=== PATIENT | male | born 1965 | race Asian ===

== ENCOUNTER 2016-12-04 10:28 | Emergency (ER) | payer OTHER ==
[~2016-12-04] VITALS: Ht 162.6 cm; Wt 59.0 kg
[2016-12-04 10:44] VITALS: BP 155/96
[2016-12-04 11:29] LABS: Basophils # (auto) 0 uL; CONDITION Y; Eosinophils # (auto) 0.1 uL; Eosinophils % (auto) 1.1 % (0.0-7.0); Hematocrit 45.3 % (41.0-53.0); Hemoglobin 15.8 g/dL (13.5-17.5); Lymphocytes # (auto) 0.3 uL; Lymphocytes % (auto) 4.2 % (10.0-50.0); Mean Corpuscular Hemoglobin 33.9 pg (28.0-32.0); Mean Corpuscular Hgb Conc. 34.8 g/dL (32.0-36.0); Mean Corpuscular Volume 97.3 fL (80.0-100.0); Mean Platelet Volume 8.3 fL (7.4-10.4); Monocytes % (auto) 13.8 % (0.0-12.0); Neutrophils # (auto) 5.7 uL; Neutrophils % (auto) 80.9 % (37.0-80.0); Platelet Count (auto) 271 10^3/uL (140-450); Red Cell Distribution Width 14.1 % (11.6-16.0)
[2016-12-04 11:47] LABS: Albumin 4.3 g/dL (3.4-5.0); BUN/Creatinine Ratio 16.7; Calcium 9.2 mg/dL (8.5-10.1); Potassium 3.8 mmol/L (3.5-5.1)
[2016-12-04 11:49] LABS: Bilirubin, Total 1.2 mg/dL (0.2-1.0); Total Protein 7.6 g/dL (6.4-8.2)
== END 2016-12-04 11:53 | disposition left against medical advice (07) ==
LOC: ER 10:33
DX: Z76.1 Encounter for health supervision and care of foundling (principal); Z53.21 Procedure and treatment not carried out due to patient leaving prior to being seen by health care provider
CPT/HCPCS: 36415; 80053; 85025

== ENCOUNTER 2016-12-17 00:59 | Emergency (ER) | payer OTHER ==
[~2016-12-17] VITALS: Ht 162.6 cm; Wt 56.7 kg
[2016-12-17] MEDS ORDERED: cefTRIAXone SOD 1,000 MG VL IM ONE (03:45)
[2016-12-17 04:15] VITALS: BP 127/72
== END 2016-12-17 04:29 | disposition home or self-care (01) ==
LOC: ER 00:59
DX: L03.011 Cellulitis of right finger (principal); B00.89 Other herpesviral infection; M19.90 Unspecified osteoarthritis, unspecified site
CPT/HCPCS: 10160; 73140; 87205; 96372; 99285; J0696

== ENCOUNTER 2017-07-04 12:15 | Emergency (ER) | payer OTHER ==
[~2017-07-04] VITALS: Ht 162.6 cm; Wt 56.7 kg
[2017-07-04 13:00] VITALS: BP 136/94
== END 2017-07-04 14:31 | disposition left against medical advice (07) ==
LOC: ER 12:15
DX: C85.90 Non-Hodgkin lymphoma, unspecified, unspecified site (principal); M19.90 Unspecified osteoarthritis, unspecified site

== ENCOUNTER 2017-08-28 18:04 | Emergency (ER) | payer OTHER ==
[~2017-08-28] VITALS: Ht 162.6 cm; Wt 55.3 kg
[2017-08-28 18:08] VITALS: BP 134/38
[2017-08-28 18:54] LABS: Basophils # (auto) 0 uL; Basophils % (auto) 0.6 % (0.0-2.0); Eosinophils # (auto) 0.2 uL; Eosinophils % (auto) 2.7 % (0.0-7.0); Hematocrit 35.1 % (41.0-53.0); Hemoglobin 12.2 g/dL (13.5-17.5); Lymphocytes # (auto) 0.2 uL; Lymphocytes % (auto) 2.9 % (10.0-50.0); Mean Corpuscular Hemoglobin 33.5 pg (28.0-32.0); Mean Corpuscular Hgb Conc. 34.8 g/dL (32.0-36.0); Mean Corpuscular Volume 96.3 fL (80.0-100.0); Monocytes # (auto) 1.1 uL; Monocytes % (auto) 15.1 % (0.0-12.0); Neutrophils # (auto) 5.8 uL; Neutrophils % (auto) 78.7 % (37.0-80.0); Platelet Count (auto) 328 10^3/uL (140-450); Red Blood Cells 3.64 10^6/uL (4.5-5.90); Red Cell Distribution Width 13.3 % (11.8-14.3); White Blood Cell 7.4 10^3/uL (4.4-10.8)
[2017-08-28 19:15] LABS: Albumin 3.7 g/dL (3.4-5.0); BUN/Creatinine Ratio 15.8; Bilirubin, Total 0.7 mg/dL (0.2-1.0); Calcium 8.5 mg/dL (8.5-10.1); Total Protein 6.8 g/dL (6.4-8.2)
== END 2017-08-28 18:51 | disposition left against medical advice (07) ==
LOC: ER 18:04
DX: R52 Pain, unspecified (principal); Z53.21 Procedure and treatment not carried out due to patient leaving prior to being seen by health care provider
CPT/HCPCS: 36415; 80053; 85025

== ENCOUNTER 2018-03-18 12:35 | Emergency (ER) | payer OTHER ==
[~2018-03-18] VITALS: Ht 162.6 cm; Wt 55.3 kg
[2018-03-18 13:17] VITALS: BP 127/70
[2018-03-18] MEDS ORDERED: IBUPROFEN 800 MG TAB PO ONE (14:45)
== END 2018-03-18 15:27 | disposition home or self-care (01) ==
LOC: ER 12:35
DX: S46.912A Strain of unspecified muscle, fascia and tendon at shoulder and upper arm level, left arm, initial encounter (principal); M19.90 Unspecified osteoarthritis, unspecified site; X58.XXXA Exposure to other specified factors, initial encounter; Y93.89 Activity, other specified; Y99.8 Other external cause status; Y92.89 Other specified places as the place of occurrence of the external cause
CPT/HCPCS: 73060

== ENCOUNTER 2019-04-28 00:16 | Emergency (ER) | payer OTHER ==
[~2019-04-28] VITALS: Ht 162.6 cm; Wt 51.7 kg
[2019-04-28] MEDS ORDERED: cloNIDine HCL 0.1 MG TAB ONE (00:42)
[2019-04-28] MEDS ORDERED: cloNIDine HCL 0.1 MG TAB PO ONE (01:00)
[2019-04-28 01:49] LABS: Basophils # (auto) 0 uL; Eosinophils # (auto) 0 uL; Lymphocytes # (auto) 0.3 uL; Lymphocytes % (auto) 2.9 % (10.0-50.0); Monocytes # (auto) 0.4 uL
[2019-04-28 01:50] LABS: Basophils % (auto) 0.2 % (0.0-2.0); Eosinophils % (auto) 0.1 % (0.0-7.0); Hematocrit 50.8 % (41.0-53.0); Hemoglobin 17.9 g/dL (13.5-17.5); Mean Corpuscular Hemoglobin 33.4 pg (28.0-32.0); Mean Corpuscular Hgb Conc. 35.2 g/dL (32.0-36.0); Mean Corpuscular Volume 94.9 fL (80.0-100.0); Neutrophils # (auto) 8.4 uL; Neutrophils % (auto) 92.8 % (37.0-80.0); Platelet Count (auto) 321 10^3/uL (140-450); Red Blood Cells 5.35 10^6/uL (4.5-5.90); Red Cell Distribution Width 13.1 % (11.8-14.3); White Blood Cell 9.1 10^3/uL (4.4-10.8)
[2019-04-28 02:06] LABS: Alanine Aminotransferase 20 U/L (16-61); Albumin 5.1 g/dL (3.4-5.0); Anion Gap 7 (5-15); Aspartate Aminotransferase 21 U/L (15-37); BUN/Creatinine Ratio 15.6; Blood Urea Nitrogen 15 mg/dL (7-18); Calcium 9.5 mg/dL (8.5-10.1); Carbon Dioxide 27 mmol/L (21-32); Chloride 100 mmol/L (98-107); GFR African American 105 mL/min; GFR Non-African American 87 mL/min; Glucose 114 mg/dL (74-106); Magnesium 2.6 mg/dL (1.6-2.6); Potassium 4.1 mmol/L (3.5-5.1); Sodium 134 mmol/L (136-145)
[2019-04-28 02:14] LABS: Alkaline Phosphatase 79 U/L (45-117); Bilirubin, Total 1.7 mg/dL (0.2-1.0); Total Protein 9.3 g/dL (6.4-8.2)
[2019-04-28 06:20] LABS: Urine Bacteria FEW /hpf (None Seen); Urine Blood Negative /uL (Negative); Urine Hyaline Cast FEW /lpf (0 - 2); Urine Mucus FEW (None Seen); Urine WBC 2 /hpf (0 - 3)
[2019-04-28] MEDS ORDERED: SODIUM CHLORIDE 0.9% 1,000 ML IV ONE (07:22)
[2019-04-28 11:48] VITALS: BP 145/73
== END 2019-04-28 11:50 | disposition home or self-care (01) ==
LOC: ER 00:19
DX: S22.008A Other fracture of unspecified thoracic vertebra, initial encounter for closed fracture (principal); B19.20 Unspecified viral hepatitis C without hepatic coma; X58.XXXA Exposure to other specified factors, initial encounter; Y93.89 Activity, other specified; Y92.89 Other specified places as the place of occurrence of the external cause; Y99.8 Other external cause status
CPT/HCPCS: 36415; 71046; 80053; 81001; 83735; 84443; 84484; 85025; 93005; 96360; 96361; 99284; J7030

== ENCOUNTER 2019-05-17 01:47 | Emergency (ER) | payer OTHER ==
[~2019-05-17] VITALS: Ht 162.6 cm; Wt 51.7 kg
[2019-05-17 08:06] LABS: Urine Bacteria NONE SEEN /hpf (None Seen); Urine Blood Negative /uL (Negative); Urine Mucus FEW (None Seen); Urine Specific Gravity 1.022 (1.001-1.035); Urine WBC <1 /hpf (0 - 3)
[2019-05-17 08:09] LABS: Basophils # (auto) 0 uL; Hemoglobin 15.2 g/dL (13.5-17.5); Lymphocytes # (auto) 0.7 uL; White Blood Cell 5.5 10^3/uL (4.4-10.8)
[2019-05-17 08:12] LABS: Basophils % (auto) 0.8 % (0.0-2.0); Eosinophils # (auto) 0.1 uL; Eosinophils % (auto) 2.6 % (0.0-7.0); Lymphocytes % (auto) 13.6 % (10.0-50.0); Mean Corpuscular Hemoglobin 34.5 pg (28.0-32.0); Mean Corpuscular Hgb Conc. 35.4 g/dL (32.0-36.0); Mean Corpuscular Volume 97.3 fL (80.0-100.0); Monocytes # (auto) 0.9 uL; Monocytes % (auto) 16.9 % (0.0-12.0); Neutrophils # (auto) 3.6 uL; Neutrophils % (auto) 66.1 % (37.0-80.0); Nucleated Red Blood Cells % 0.1 %; Platelet Count (auto) 220 10^3/uL (140-450); Red Blood Cells 4.42 10^6/uL (4.5-5.90); Red Cell Distribution Width 13.3 % (11.8-14.3)
[2019-05-17 08:20] LABS: Albumin 3.9 g/dL (3.4-5.0); Anion Gap 5 (5-15); Blood Urea Nitrogen 19 mg/dL (7-18); Calcium 8.6 mg/dL (8.5-10.1); Carbon Dioxide 27 mmol/L (21-32); Chloride 109 mmol/L (98-107); Glucose 63 mg/dL (74-106); Magnesium 2.3 mg/dL (1.6-2.6); Potassium 3.8 mmol/L (3.5-5.1); Sodium 141 mmol/L (136-145)
[2019-05-17 08:24] LABS: Alanine Aminotransferase 23 U/L (16-61); Alkaline Phosphatase 61 U/L (45-117); Aspartate Aminotransferase 28 U/L (15-37); Bilirubin, Total 0.7 mg/dL (0.2-1.0); GFR African American 107 mL/min; GFR Non-African American 88 mL/min; Total Protein 7.3 g/dL (6.4-8.2)
[2019-05-17] MEDS ORDERED: SODIUM CHLORIDE 0.9% 1,000 ML IV ONE ×2 (09:11)
[2019-05-17 10:03] LABS: Alcohol, Urine < 3.0 mg/dL (0-5); Amphetamine Screen, Urine POSITIVE (NEGATIVE); Barbiturate Scree,Urine NEGATIVE (NEGATIVE); Benzodiazephine Screen, Urine NEGATIVE (NEGATIVE); Cannabinoid Screen, Urine NEGATIVE (NEGATIVE); Cocaine Screen, Urine NEGATIVE (NEGATIVE); Phencyclidine Screen, Urine NEGATIVE (NEGATIVE)
[2019-05-17 10:10] LABS: Opiate Scree,Urine NEGATIVE (NEGATIVE)
[2019-05-17 10:55] LABS: INR 1.01 (0.9-1.15); Partial Thromboplastin Time 26.2 sec (23.64-32.05)
[2019-05-17 13:00] VITALS: BP 151/86
== END 2019-05-17 13:42 | disposition home or self-care (01) ==
LOC: ER 01:47
DX: E86.0 Dehydration (principal); F15.29 Other stimulant dependence with unspecified stimulant-induced disorder; R42 Dizziness and giddiness; R51 Headache
CPT/HCPCS: 29105; 36415; 71045; 80053; 80307; 81001; 83605; 83735; 84484; 85025; 85610; 85730; 87040; 96360; 96361

== ENCOUNTER 2020-11-01 21:30 | Emergency (ER) | payer OTHER ==
[~2020-11-01] VITALS: Ht 162.6 cm; Wt 54.4 kg
[2020-11-01 23:40] VITALS: BP 106/58
== END 2020-11-02 00:27 | disposition home or self-care (01) ==
LOC: ER 21:30
DX: S71.002D Unspecified open wound, left hip, subsequent encounter (principal); I10 Essential (primary) hypertension; M19.90 Unspecified osteoarthritis, unspecified site; X58.XXXD Exposure to other specified factors, subsequent encounter